=== PATIENT | female | born 2000 | race African-American/Black ===

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

== ENCOUNTER 2020-01-01 00:12 | Emergency (ER) | payer BC ==
[~2020-01-01] VITALS: Ht 165.1 cm; Wt 60.9 kg
[~2020-01-01 00:12] MED LIST changes: +AZIT250T PO; -DOXY100T10 PO; +DOXY100T27 PO; +IBUP-1007 PO; +LIDOCAIN SWSP; +VISCOUS SWSP
[2020-01-01 00:48] VITALS: BP 113/66
--- NOTE | 2020-01-01 01:19 | PHYS DOC ---
Past Medical History Past Medical History: No Pertinent History Past Surgical History: No Surgical History Smoking Status: Never Smoker Alcohol Use: None Drug Use: None General Adult EDM: Chief Complaint: DENTAL PROBLEM HPI: HPI: Patient is a 19 year old female who presents with complaints of pain in her jaw . 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 Since that day she has had pain and is having finding it more more difficult to open up her mouth and take big bites. However she is not having troubles opening her mouth secondary to mechanical restriction but secondary to pain. She is able to eat and drink without any difficulty. She denied fever, chills or sweats. She denied any pain with chewing in her teeth. She denies any neck swelling or masses. Review of Systems: Review of Systems: Constitutional: Denies fever or chills. [] Eyes: Denies change in visual acuity. [] HENT: Denies nasal congestion or sore throat. [] Respiratory: Denies cough or shortness of breath. [] Cardiovascular: Denies chest pain or edema. [] GI: Denies abdominal pain, nausea, vomiting, bloody stools or diarrhea. [] [] Heart Score: Risk Factors: Risk Factors: DM, Current or recent (<one month) smoker, HTN, HLP, family history of CAD, obesity. Risk Scores: Score 0 - 3: 2.5% MACE over next 6 weeks - Discharge Home Score 4 - 6: 20.3% MACE over next 6 weeks - Admit for Clinical Observation Score 7 - 10: 72.7% MACE over next 6 weeks - Early Invasive Strategies Allergies: Allergies: Allergies Coded Allergies Type Severity Reaction Last Updated Verified No Known Drug Allergies 05/02/17 No Physical Exam: PE: Constitutional: Well developed, well nourished, no acute distress, non-toxic appearance. [] HENT: Normocephalic, atraumatic, bilateral external ears normal, TMs bilaterally with some mild air-fluid levels without erythema, TMJs bilaterally were tender with the left much more tender. No erythema calor or effusion were identified. Patient was able to open her mouth sufficiently. Oropharynx moist, no oral exudates, nose normal. Good dentition without any pointing abscesses or gingival swelling [] Eyes: PERRLA, EOMI, conjunctiva normal, no discharge. [] Neck: Normal range of motion, no tenderness, supple, no stridor. [] EKG: EKG: [] Radiology/Procedures: Radiology/Procedures: [] Course & Med Decision Making: Course & Med Decision Making Pertinent Labs and Imaging studies reviewed. (See chart for details) 0116-the patient was seen and examined. No evidence for an exigent medical or surgical problems identified today. I discussed treatment plan, reasons to return and need for follow-up. [] Dragon Disclaimer: Dragon Disclaimer: This electronic medical record was generated, in whole or in part, using a voice recognition dictation system. Departure Departure Impression: Primary Impression: TMJ (temporomandibular joint syndrome) Disposition: 01 HOME, SELF-CARE Condition: GOOD Referrals: NO PCP (PCP) CESAR DUBON MD Patient Instructions: Temporomandibular Joint Pain-Brief, Temporomandibular Problems Additional Instructions: Please take 2 Aleve twice a day with food for the next 2 to 6 weeks, you may use heat and/or ice to the joints for comfort, avoid chewing for a minimum of 2 weeks. Consider a soft mechanical diet. Justicifation of Admission Dx: Justifications for Admission: Justification of Admission Dx: N/A INDIGO CRUZ MD Jan 01, 2020 01:19
[2020-01-01] MEDS: KETOROLAC 60 MG/2 ML VIAL. IM ONE (01:28)
== END 2020-01-01 01:35 | disposition home or self-care (01) ==
LOC: ER 00:12
DX: M26.623 Arthralgia of bilateral temporomandibular joint (principal)
CPT/HCPCS: 96372; 99283; J1885

== ENCOUNTER 2020-02-20 15:10 | Emergency (ER) | payer SELFPAY ==
[~2020-02-20] VITALS: Ht 165.1 cm; Wt 60.9 kg
[2020-02-20] MEDS ORDERED: DIPH,PERTUSS(ACELL),TET VAC/PF 0.5 ML SYRINGE. VAX IM ONE (15:45)
[2020-02-20] MEDS ORDERED: HYDROcodone/APAP 5/325MG 1 TAB TABLET PO ONE (15:45)
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
[2020-02-20] MEDS ORDERED: fentaNYL PF VIAL 100 MCG/2 ML VIAL IV PRN (16:15)
[2020-02-20 16:23] VITALS: BP 128/88
[2020-02-20] MEDS ORDERED: IV NORMAL SALINE 1000ML BAG 1,000 ML IV ONE (16:30)
== END 2020-02-20 16:36 | disposition left against medical advice (07) ==
LOC: ER 15:10
DX: T23.201A Burn of second degree of right hand, unspecified site, initial encounter (principal); T25.221A Burn of second degree of right foot, initial encounter; T24.211A Burn of second degree of right thigh, initial encounter; T21.11XA Burn of first degree of chest wall, initial encounter; T31.0 Burns involving less than 10% of body surface; X19.XXXA Contact with other heat and hot substances, initial encounter; Y93.89 Activity, other specified; Y92.89 Other specified places as the place of occurrence of the external cause; Y99.8 Other external cause status
CPT/HCPCS: 99281